=== PATIENT | female | born 1955 | race Caucasian/White ===

== ENCOUNTER 2018-09-18 09:31 | Day surgery (SDC) | payer BC ==
[~2018-09-18] VITALS: Ht 165.1 cm; Wt 76.2 kg
[~2018-09-18 09:31] MED LIST: Aspirin EC81 MG PO; Bupropion Xl150 MG PO; FURO20 PO; FURO40 PO; HYDACE5 PO; LAMISIL AT30 GM TP; LEVO-T137 MCG PO; Multiple Vitam1 EACH PO; NAPR500 PO; POTA10T PO; POTCHL10ER PO; SERT100 PO; SERT25 PO; THYR60 PO; VITAMIN B12-FO1 EACH PO
--- NOTE | 2018-09-18 12:31 | NUR ---
09/18/18 1231 Savannah Flores SITTTING UP IN RECLINER, LEG ELEVATED W/ICE PACK BEHIND KNEE. DENIES PAIN. SNACKING AND DRINKING JUICE
== END 2018-09-18 13:15 | disposition home or self-care (01) ==
LOC: ORSCSDS 09:31
PROVIDERS: Podiatrist Foot & Ankle Surgery
PROC: 0SGM04Z Fusion of Right Metatarsal-Phalangeal Joint with Internal Fixation Device, Open Approach (ICD-10-PCS; principal; 2018-09-18 11:00)
DX: M20.21 Hallux rigidus, right foot (principal); K21.9 Gastro-esophageal reflux disease without esophagitis; E03.9 Hypothyroidism, unspecified; Z79.899 Other long term (current) drug therapy; Z79.82 Long term (current) use of aspirin
CPT/HCPCS: C1713; C1769; J0690; J1100; J2250; J2405; J3010; J7120

== ENCOUNTER → 2020-08-03 | Outpatient (CLI) | payer BC ==
[2020-08-04 08:10] LABS: HBSAG SCREEN Negative (Negative); HCV ANTIBODY <0.1 (0.0-0.9)
[2020-08-04 09:00] LABS: HIV SCREEN 4TH GENERATION WRFX Non Reactive (Non Reactive)
== END ==
LOC: LAB EV 12:19 → LAB SHORT 12:19
PROVIDERS: Family Medicine
DX: Z20.9 Contact with and (suspected) exposure to unspecified communicable disease (principal)
CPT/HCPCS: 84460; 86317; 86803; 87340; 87389

== ENCOUNTER 2024-06-08 08:22 | Day surgery (SDC) | payer OTHER ==
[~2024-06-08] VITALS: Ht 165.1 cm; Wt 82.6 kg
[~2024-06-08 08:22] MED LIST changes: +ACET500 PO; +Lactated Ringer's 1,000 ML IV ONE; +OXAYDO5 M1 PO; +Vitamin D1000 UNI1 PO; +XARELTO20 MG PO; +propofoL 50 ML IV ONE
[2024-06-08] MEDS ORDERED: FURO40 (09:20)
[2024-06-08] MEDS ORDERED: Lactated Ringer's 1,000 ML IV ONE (10:25)
[2024-06-08] MEDS ORDERED: propofoL 50 ML IV ONE (10:59)
[2024-06-08 11:45] VITALS: BP 100/68
== END 2024-06-08 11:42 | disposition home or self-care (01) ==
LOC: ORSCSDS 08:22
PROVIDERS: Surgery
PROC: 0DBH8ZX Excision of Cecum, Via Natural or Artificial Opening Endoscopic, Diagnostic (ICD-10-PCS; principal; 2024-06-08 09:45)
DX: Z12.11 Encounter for screening for malignant neoplasm of colon (principal); K63.5 Polyp of colon; K57.30 Diverticulosis of large intestine without perforation or abscess without bleeding; K21.9 Gastro-esophageal reflux disease without esophagitis; E03.9 Hypothyroidism, unspecified; F33.9 Major depressive disorder, recurrent, unspecified; Z79.899 Other long term (current) drug therapy
CPT/HCPCS: 88305; J2704; J7120

== ENCOUNTER → 2024-09-17 | Outpatient (CLI) | payer MEDICARE ==
[~2024-09-17] MED LIST changes: +Acetaminophen650 M1 PO; +COQ1050 MG PO; +Colace100 MG PO; +FURO40; -Lactated Ringer's 1,000 ML IV ONE; +MAGNESIUM CITR100 M1 PO; +OMEP20ER PO; +OXAYDO5 M2 PO; +PROBIOTIC1 EA13 PO; +SELENIUM200 MC3 PO; +TURMERIC CURCU1 EACH PO; +VITAMIN B125000 MC1 PO; +ZINC15; -propofoL 50 ML IV ONE
[2024-09-17 19:45] LABS: Adenovirus F 40/41 Not Detected (NOT DETECT); Astrovirus Not Detected (NOT DETECT); Campylobacter Sp Not Detected (NOT DETECT); Cryptosporidium Not Detected (NOT DETECT); Cyclospora Cayetanensis Not Detected (NOT DETECT); E. Coli O157 Not Detected (NOT DETECT); Entamoeba Histolytica Not Detected (NOT DETECT); Enteroaggregative E. coli-EAEC Not Detected (NOT DETECT); Enteropathogenic E. coli-EPEC Not Detected (NOT DETECT); Enterotoxigenic E. coli-ETEC Not Detected (NOT DETECT); Giardia Lamblia Not Detected (NOT DETECT); Norovirus GI/GII Not Detected (NOT DETECT); Plesiomonas Shigelloides Not Detected (NOT DETECT); Rotavirus A Not Detected (NOT DETECT); Salmonella Sp Not Detected (NOT DETECT); Sapovirus Not Detected (NOT DETECT); Shiga Toxin-prod E. coli-STEC Not Detected (NOT DETECT); Shigella/Enteroin E. coli-EIEC Not Detected (NOT DETECT); Vibrio Cholerae Not Detected (NOT DETECT); Vibrio Sp Not Detected (NOT DETECT); Yersinia Enterocolitica Not Detected (NOT DETECT)
== END | disposition home or self-care (01) ==
LOC: LAB SHORT 14:34 → LAB 14:34
PROVIDERS: Family Medicine
DX: R19.7 Diarrhea, unspecified (principal)
CPT/HCPCS: 87324; 87507

== ENCOUNTER → 2024-10-29 | Outpatient (CLI) | payer MEDICARE ==
[2024-10-29 18:56] LABS: Enteropathogenic E. coli-EPEC Detected (NOT DETECT)
[2024-10-29 18:57] LABS: Adenovirus F 40/41 Not Detected (NOT DETECT); Astrovirus Not Detected (NOT DETECT); Campylobacter Sp Not Detected (NOT DETECT); Cryptosporidium Not Detected (NOT DETECT); Cyclospora Cayetanensis Not Detected (NOT DETECT); E. Coli O157 Not Detected (NOT DETECT); Entamoeba Histolytica Not Detected (NOT DETECT); Enteroaggregative E. coli-EAEC Not Detected (NOT DETECT); Enterotoxigenic E. coli-ETEC Not Detected (NOT DETECT); Giardia Lamblia Not Detected (NOT DETECT); Norovirus GI/GII Not Detected (NOT DETECT); Plesiomonas Shigelloides Not Detected (NOT DETECT); Rotavirus A Not Detected (NOT DETECT); Salmonella Sp Not Detected (NOT DETECT); Sapovirus Not Detected (NOT DETECT); Shiga Toxin-prod E. coli-STEC Not Detected (NOT DETECT); Shigella/Enteroin E. coli-EIEC Not Detected (NOT DETECT); Vibrio Cholerae Not Detected (NOT DETECT); Vibrio Sp Not Detected (NOT DETECT); Yersinia Enterocolitica Not Detected (NOT DETECT)
== END ==
LOC: LAB SHORT 14:00 → LAB 14:00
PROVIDERS: Family Medicine
DX: A04.72 Enterocolitis due to Clostridium difficile, not specified as recurrent (principal); R19.7 Diarrhea, unspecified
CPT/HCPCS: 87324; 87507